=== PATIENT | male | born 1945 | race Caucasian/White ===

== ENCOUNTER 2024-11-11 07:11 | Day surgery (SDC) | payer MEDICARE ==
[2024-11-07 14:55] LABS: BASOPHILS # (AUTO) 0.1 X10'3 (0-0.2); BASOPHILS % (AUTO) 0.8 % (0-1); EOSINOPHILS # (AUTO) 0.1 X10'3 (0-0.9); EOSINOPHILS % (AUTO) 1.4 % (0-6); LYMPHOCYTES # (AUTO) 0.8 X10'3 (1.1-4.8); LYMPHOCYTES % (AUTO) 9.9 % (21-51); MEAN CORPUSCULAR HEMOGLOBIN 27.9 PG (27.0-31.0); MEAN CORPUSCULAR HGB CONC 31.9 g/dL (33.0-36.5); MEAN CORPUSCULAR VOLUME 87.5 FL (78-98); MEAN PLATELET VOLUME 8.1 FL (7.4-10.4); MONOCYTES # (AUTO) 0.9 X10'3 (0-0.9); MONOCYTES % (AUTO) 10.6 % (2-12); NEUTROPHILS # (AUTO) 6.4 X10'3 (1.8-7.7); NEUTROPHILS % (AUTO) 77.3 % (42-75); PRE OP HEMATOCRIT 39.4 % (35.0-45.0); PRE OP HEMOGLOBIN 12.6 g/dL (12.0-16.0); PRE OP PLATELET COUNT 323 X10'3 (140-440); PRE OP WHITE BLOOD COUNT 8.3 10'3 (4.8-10.8); RED CELL DISTRIBUTION WIDTH 15.4 % (11.5-14.5)
--- NOTE | 2024-11-07 14:56 | ELECTROCARDIOGRAPH REPORT ---
[facility] Test Date: 2024-11-07 Test Time: 14:53:06 Pat Name: NORM CARTER Department: [facility]-PRE-OP Patient ID: [facility]-[id number] Room: Gender: F Hardwood Floor Layer: BRIE : 1945 Requested By: CALLI BOWEN Order Number: [id number] Reading MD: Dr. Humphrey Tavera Measurements Intervals [place] Rate: 106 P: 0 [place]: 0 QRS: 63 QRSD: 98 T: 9 QT: 331 QTc: 440 Interpretive Statements Atrial fibrillation Paired ventricular premature complexes Electronically Signed On 11-08-2024 8:15:[address] Humphrey Tavera Please click the below link to view image of tracing.
[2024-11-07 15:09] LABS: ALBUMIN 3.2 G/DL (3.4-5.0); ALBUMIN/GLOBULIN RATIO 0.7 (1.1-1.5); ALKALINE PHOSPHATASE 94 IU/L (46-116); BLOOD UREA NITROGEN 20 MG/DL (7-18); BUN/CREATININE RATIO 15.7 (10.0-20.0); CALCIUM 9.2 MG/DL (8.5-10.1); CHLORIDE 102 MMOL/L (99-107); CREATININE 1.27 MG/DL (0.40-0.90); PRE OP ALT 17 U/L (30-65); PRE OP ANION GAP 8 (8-16); PRE OP AST 16 U/L (10-37); PRE OP BILIRUB, TOTAL 0.5 MG/DL (0.0-1.0); PRE OP GLUCOSE 102 MG/DL (70-104); PRE OP POTASSIUM 4.5 MMOL/L (3.4-5.1); PRE OP SODIUM 139 MMOL/L (135-145); TOTAL PROTEIN 7.8 G/DL (6.4-8.2); eGFR 41 ML/MIN
--- NOTE | 2024-11-08 04:53 | RADIOLOGY REPORT ---
Procedure: CT CT CHEST ION Reason for study/Clinical History: PRE OP, lung mass Comparison Study: None Exam Date: 11/07/2024 02:59 PM TECHNIQUE: Multidetector CT of the chest was performed from the lung apices to the upper abdomen with out the use of intravenous contract. Axial, coronal and sagittal multiplanar reformats were performed . Radiation Dose Information: CT Dose: CTDI volume is 25 mGy. Dose-length product is 250 mGy*cm The dose indicators for CT are the volume Computed Tomography (CT) Dose Index (CTDIvol) and the Dose Length Product (DLP), and are measured in units of mGy and mGy-cm, respectively. These indicators are not patient dose, but values generated from the CT scanner acquisition factors. The report includes radiation exposure data for exposures received during this examination. FINDINGS: Lower neck: Normal thyroid. Lungs: Multiple right-sided lung masses measuring 3.8 cm right upper lobe. There is a small right ple ural effusion. There is an additional lung mass in the right lower lobe measuring 3.6 cm. There is an additional mass medial right lower lobe measuring 4.1 cm. Heart/Vascular Structures: Normal heart size. No pericardial effusion. Lymph Nodes: No adenopathy Pleura: Small right pleural effusion. Musculoskeletal: No acute osseous abnormality. Soft tissues: Normal. Upper abdomen: Limited portions of the upper abdomen are unremarkable. IMPRESSION: Multiple right-sided lung masses as above. Radiation optimization: All CT scans at this facility use at least one of these dose optimization leroy hniques: automated exposure control mA and/or kV adjustment per patient size (includes targeted exam s where dose is matched to clinical indication) or iterative reconstruction.
[~2024-11-11] VITALS: Ht 182.9 cm; Wt 152.8 kg
[2024-11-11] VITALS (14 sets, daily range): BP systolic 119–168; BP diastolic 66–104; PULSE 66–143; RESP 10–30; TEMP 98.1; O2SAT 90–98
[~2024-11-11 07:11] MED LIST: FURO-150 PO; IXEK80AU2 INJ; METO-384 PO; POTA-208 PO; RIVA20TA PO; famotidine 20mg tablet PO ONE; ringers solution, lacted 1,000 ML IV SCH
[2024-11-11] MEDS: DOCUMENT DATE & TIME OF BETA-BLOCKER PO ONE (07:53)
[2024-11-11] MEDS: ipratropium/albuterol 3ml nebule IH ONE ×2 (08:25→11:18)
[2024-11-11] MEDS ORDERED: fentaNYL/PF 50MCG/1 ML 2ML syringe ONE (09:50)
[2024-11-11] MEDS ORDERED: midazolam 1 mg/ML 2ml injection ONE (09:51)
[2024-11-11] MEDS ORDERED: sevoflurane 250ml liquid IH ONE (10:05)
[2024-11-11] MEDS ORDERED: propofol inj 20 ML IV ONE (10:11)
[2024-11-11] MEDS ORDERED: rocuronium 10mg/ml inj IV ONE (10:11)
[2024-11-11] MEDS ORDERED: ondansetron/PF 4mg/2ml inj ONE (10:11)
[2024-11-11] MEDS ORDERED: LIDOcaine 2% (20mg/ml) 5ml vial ONE (10:12)
[2024-11-11] MEDS ORDERED: dexamethasone sod phosphate 4mg/ml inj. ONE (10:12)
[2024-11-11] MEDS ORDERED: neostigmine methylsulfate 1 MG/ML 10ml vial ONE (10:36)
[2024-11-11] MEDS ORDERED: glycopyrrolate 0.2mg/ml inj ONE (10:37)
[2024-11-11] MEDS ORDERED: ringers solution, lacted 1,000 ML IV SCH (11:10)
[2024-11-11] MEDS ORDERED: morphine 2 MG/ML inj. syringe IV PRN (11:10)
[2024-11-11] MEDS ORDERED: hydrALAZINE 20mg/ml inj. IV PRN (11:10)
[2024-11-11] MEDS ORDERED: HYDROmorphone/PF 0.2 MG/ML SYRINGE IV PRN ×2 (11:10)
[2024-11-11] MEDS ORDERED: ondansetron/PF 4mg/2ml inj IV PRN (11:10)
[2024-11-11] MEDS ORDERED: proCHLORperazine 10 MG/2 ml inj IV PRN (11:10)
[2024-11-11] MEDS ORDERED: meperidine/PF 25mg/ml syringe IV PRN (11:10)
[2024-11-11] MEDS ORDERED: morphine 4 MG/ML inj SYRINge IV PRN (11:10)
[2024-11-11] MEDS: labetalol 20mg/4ml (5mg/ml) syringe IV PRN (11:17)
[2024-11-11] MEDS: furosemide 20 MG/2 ML vial IV ONE (11:17)
--- NOTE | 2024-11-11 16:55 | OPERATIVE REPORT ---
DATE OF SURGERY: 11/11/2024 DICTATING PHYSICIAN: Bhavik Bustamante MD PROCEDURE: The patient had a bronchoscopy done with robotic system. INDICATIONS FOR PROCEDURE: The patient with multiple nodules on the right side of the chest. POSTOPERATIVE DIAGNOSES: The patient with multiple nodules on the right side of the chest. DESCRIPTION OF PROCEDURE: Consent was signed by the patient after indications and potential complications were explained. We did a robotic bronchoscopy along with EBUS and also bronchial washings and radial ultrasound inspections. The patient was intubated and sedated after the consent was signed. We already had a set up. I actually had two lesions marked, one on the right upper lobe and one on the right middle lobe. We tried to navigate to the right upper lobe. It was very complicated, so we had a initial target and went to the right middle lobe and was able to get into the mass multiple times, obtained 5 different passes with transbronchial biopsies and also transbronchial needle aspirations. After we navigated to the mass with a catheter, we confirmed they were in the right place with radial ultrasound. After we got samples, we went over and did an EBUS, had multiple large paratracheal lymph nodes in zones 4R, 4L, 10, and 7, ten passes in all those areas. Also had a bronchial BAL and also suction of the bronchial. The patient tolerated the procedure well. No complications. Bhavik Bustamante MD TID: [id number] RECEIPT: [id number] [facility]/CHU
--- NOTE | 2024-11-14 16:28 | PATHOLOGY REPORT ---
[facility] [address] [place] [address] NON-FRONT DESK TEAM MEMBER CYTOLOGY REPORT CaseNumber: [id number] Surgeon:Bhavik Bustamante P.A.-C CLINICAL INFORMATION CLINICAL INFORMATION: Pt with multiple nodules on right side. DIAGNOSIS DIAGNOSIS: A.LUNG, RIGHT MIDDLE LOBE; BIOPSY - BENIGN. DIAGNOSIS: B.LUNG, RIGHT MIDDLE LOBE; FINE NEEDLE ASPIRATION - NEGATIVE FOR MALIGNANT CELL POPULATION. DIAGNOSIS: C.LYMPH NODE, STATION 7, 10R, 10L; FINE NEEDLE ASP - NEGATIVE FOR METASTATIC CARCINOMA. MICROSCOPIC DESCRIPTION A. LUNG, RIGHT MIDDLE LOBE MICROSCOPIC DESCRIPTION: One slide from part A is examined. Present are benign bronchial and alveolar lung tissue and blood clot. Macrophages are noted. A malignant epithelial cell population is not mika ntified. B. LUNG, RIGHT MIDDLE LOBE MICROSCOPIC DESCRIPTION: One H&E stained slide from cell block and one Pap stained double cytospin sl mika from part B are examined. Present are macrophages, degenerating columnar cells, and blood element s. A malignant epithelial cell population is not identified. C. LYMPH NODE, STATION 7, 10R, 10L MICROSCOPIC DESCRIPTION: One H&E stained slide from cell block and one Pap stained double cytospin sl mika from part C are examined. Present are benign bronchial elements including columnar ciliated respi ratory-type epithelium and microfragments of cartilage. A malignant epithelial cell population is not identified. (jf) GROSS DESCRIPTION A. LUNG, RIGHT MIDDLE LOBE GROSS DESCRIPTION: Received in a container of formalin labeled with the patient's name, number, and " RML" is a 0.8 x 0.4 x 0.2 cm aggregate of irregularly shaped pieces of luther tissue submitted entirely as A1.The time at which the specimen was removed was not provided. The time at which the specimen was placed in formalin was not provided. B. LUNG, RIGHT MIDDLE LOBE GROSS DESCRIPTION: Received labeled with the patient's name, number, and "RML FNA" are two bottles of cloudy cytostat red. One double cytospin slide and one cell block are prepared. The cell block is jeffries bmitted as B1. The time at which the specimen is removed is 1015. The time at which the specimen is placed in formalin is 1015. (cs) C. LYMPH NODE, STATION 7, 10R, 10L GROSS DESCRIPTION: Received labeled with the patient's name, number, and "station #7, 10R, 10L" is a 10 mL bottle of slightly cloudy cytostat red. One double cytospin slide and one cell block are prepar ed. The cell block is submitted as C1. The time at which the specimen is removed is 1030. The time at which the specimen is placed in formalin is 1030. (cs) Electronically signed by: Shiva Stephenson M.D. 11/14/2024 3:58:00 PM
== END 2024-11-11 12:28 | disposition home or self-care (01) ==
LOC: PAS 07:11
PROVIDERS: ATTEND Internal Medicine Critical Care Medicine
DX: R91.8 Other nonspecific abnormal finding of lung field (principal); I48.91 Unspecified atrial fibrillation; I50.9 Heart failure, unspecified; L40.50 Arthropathic psoriasis, unspecified; Z98.890 Other specified postprocedural states; Z87.891 Personal history of nicotine dependence; Z79.899 Other long term (current) drug therapy; Z87.442 Personal history of urinary calculi; Z88.8 Allergy status to other drugs, medicaments and biological substances; Z88.0 Allergy status to penicillin
CPT/HCPCS: 31624; 31627; 31628; 31653; 36415; 71250; 80053; 82948; 85025; 87015; 87070; 87116; 87206; 93005; 94640; 94760; A4615; A4618; J1100; J1938; J2003; J2250; J2405; J2704; J2710; J3010; J3490; J7120; Z7506; Z7508; Z7512; Z7610; 31622; 31625; 31626; 31654; 88173; 88305